=== PATIENT | female | born 1945 | race Caucasian/White ===

== ENCOUNTER 2016-08-22 05:41 | Observation (INO) | payer MEDICARE, OTHER ==
[~2016-08-22] VITALS: Ht 157.5 cm; Wt 61.5 kg
[~2016-08-22 05:41] MED LIST: DETR4CAP PO; GABA600T PO; HYDR-3583 PO; LORA1TAB12 PO; MELO7.5T4 PO; METO100T PO; SIMV10TA PO; TRAZ150T75 PO; TRIA37.5 PO
[2016-08-22] MEDS ORDERED: SODIUM CHLORID 0.9% 500 ML IV SCH (06:15)
[2016-08-22] MEDS ORDERED: ceFAZolin 2 GM PREMIX 50 ML IV SCH (06:15)
[2016-08-22] MEDS ORDERED: METOPROLOL TARTRATE 25 MG TAB PO PRN (06:15)
[2016-08-22] MEDS ORDERED: INSULIN HUMAN REGULAR 1,000 UNITS/10 ML VIAL SQ PRN (06:15)
[2016-08-22] MEDS ORDERED: VANCOMYCIN 1000 MG/NS 250 ML (for <70 kg) IV SCH ×2 (06:15)
[2016-08-22] MEDS ORDERED: CHLORHEXIDINE GLUCONATE 4% SOLN 120 ML BTL TOP SCH (06:15)
[2016-08-22] MEDS: LACTATED RINGER'S 1000 ML IV SCH ×2 (06:15→21:58)
[2016-08-22] MEDS ORDERED: AMLO5TAB2 PO (06:25)
[2016-08-22] MEDS ORDERED: STOO100C (06:25)
[2016-08-22] MEDS ORDERED: PERC5TAB12 PO (06:25)
[2016-08-22 06:27] VITALS: BP 161/80; PULSE 104; RESP 18; TEMP 99.3; O2SAT 97
[2016-08-22] MEDS ORDERED: GENTAMICIN SULFATE 80 MG/2 ML VIAL ONE (07:00)
[2016-08-22] MEDS ORDERED: MIDAZOLAM HCL 2 MG/2 ML VIAL ONE (07:09)
[2016-08-22] MEDS ORDERED: FAMOTIDINE 20 MG/2 ML VIAL ONE (07:09)
[2016-08-22] MEDS ORDERED: DEXAMETHASONE SOD PHOS 4 MG/ML VIAL ONE (07:09)
[2016-08-22 07:43] LABS: AUTOMATED NEUTROPHIL # 7.5 TH/MM3 (1.8-7.7); BASOPHIL # 0.1 TH/MM3 (0-0.2); BASOPHIL % 0.6 % (0.0-2.0); EOSINOPHIL # 0.3 TH/MM3 (0-0.4); EOSINOPHIL % 2.5 % (0.0-4.0); HEMATOCRIT 31.1 % (35.0-46.0); HEMO FLAGS DIFF FINAL; LYMPH % 13.9 % (9.0-44.0); LYMPHOCYTE # 1.4 TH/MM3 (1.0-4.8); MEAN CELL VOLUME 81.9 FL (80.0-100.0); MEAN CORPUSCULAR HEMOGLOBIN 27.9 PG (27.0-34.0); MONO % 9.8 % (0.0-8.0); NEUT % 73.2 % (16.0-70.0); PLATELET COUNT 183 TH/MM3 (150-450); RED CELL DISTRIBUTION WIDTH 13.2 % (11.6-17.2); WHITE BLOOD COUNT 10.2 TH/MM3 (4.0-11.0)
[2016-08-22 08:04] LABS: ALKALINE PHOSPHATASE 71 U/L (45-117); ALT (GPT) 19 U/L (10-53); ANION GAP 8 MEQ/L (5-15); AST (GOT) 20 U/L (15-37); BICARBONATE 28.7 MEQ/L (21.0-32.0); CHLORIDE 101 MEQ/L (98-107); GLOMERULAR FILTRATION RATE 50 ML/MIN (>89); POTASSIUM 3.5 MEQ/L (3.5-5.1); SODIUM (NA) 138 MEQ/L (136-145); TOTAL BILIRUBIN ADULT 0.4 MG/DL (0.2-1.0)
[2016-08-22 08:05] LABS: BLOOD UREA NITROGEN 20 MG/DL (7-18)
[2016-08-22 08:25] LABS: APTT (PATIENT) 21.9 SEC (24.3-30.1)
[2016-08-22] MEDS ORDERED: PERC7.5T13 PO (09:06)
--- NOTE | 2016-08-22 09:10 | PD.OP ---
Operative Report Date of Surgery: Aug 22, 2016 Preoperative Diagnosis: Displaced right humeral shaft fracture Postoperative Diagnosis: Displaced right humeral shaft fracture, nondisplaced right humeral neck fracture Procedure: Open reduction internal fixation right humeral shaft fracture, open reduction internal fixation right humeral neck fracture Anesthesia: Gen. Surgeon: Dalton Tran Electronic Equipment Maint Tech(s): ANTONIA Hernandez PA-C The surgical procedure was assisted by my physician assistant golf course superintendent. My P.A. presence was necessary throughout this case for the manipulation and positioning of the surgical extremity. My P.A. was assisting me throughout the duration of this procedure. The skill set of a physician assistant golf course superintendent was medically necessary to complete this procedure. During the surgical case the surgical appliances salesperson was working at the back table and the physician assistant golf course superintendent was directly assisting me. Operation and Findings: Patient was seen and evaluated preoperatively. Patient was found to have a displaced humerus fracture. The risks and benefits of surgical and nonsurgical options were discussed in detail and informed consent was obtained for surgery. Patient was brought to the operating room and placed on or table. IV sedation and GETA were administered by anesthesiologist. Antibiotics were given prior to incision. Operative arm and shoulder were prepped with alcohol followed by Hibiclens and draped usual sterile fashion. Timeout procedure was performed. Procedure began with a 5 inch incision over the anterior arm. Cephalic vein was identified. A standard anterior approach was utilized. The fracture was now visualized. Soft tissue was retracted. Attention was now turned to reduction. Gentle traction was applied. The humeral shaft fracture was reduced. Fracture was manipulated to achieve excellent reduction. Multiplanar fluoroscopy confirmed well aligned humerus shaft fracture. At this point in additional humeral neck fracture was identified under fluoroscopy. The incision was extended proximally. Proximally a deltopectoral incision was used and distally the brachialis was split. Multiple K wires were used to hold provisional fixation. A 2.7 cortical lag screw was used to compress the humeral shaft fracture. A long Synthes proximal humerus plate was selected to span both fractures. Plate was provisionally held in place K wires. 3.5 cortical screws were used to compress plate to bone. Fluoroscopy confirmed appropriate plate placement and fracture reduction. Multiple locking screws were now placed in the humeral head. Screws were predrilled and premeasured for appropriate length. Care was taken not to penetrate the articular surface. Additional screws were placed in the humeral shaft. Final fluoroscopy revealed well aligned fracture with well-placed hardware. Wound was thoroughly irrigated. Fascia was closed with #1 Vicryl, subcutaneous tissues closed with 3 -0 Vicryl, and skin was closed with pat. Sterile dressings were applied. Patient was placed into a sling. Patient was awakened and transferred to recovery in stable condition. Needle and sponge counts were correct. Dalton Tran MD Aug 22, 2016 09:09
[2016-08-22] MEDS ORDERED: ACETAMINOPHEN/HYDROcodone 325 MG/10 MG TAB PO PRN (09:15)
[2016-08-22] MEDS ORDERED: diphenhydrAMINE HCL 25 MG CAP PO PRN (09:15)
[2016-08-22] MEDS ORDERED: SODIUM CHLORIDE 0.9% FLUSH 5 ML FLUSH IVF PRN (09:15)
[2016-08-22] MEDS ORDERED: MORPHINE SULFATE 4 MG/ML INJ IV PUSH PRN (09:15)
[2016-08-22] MEDS ORDERED: ONDANSETRON HCL 4 MG/2 ML VIAL IVP PRN (09:15)
[2016-08-22] MEDS ORDERED: DO NOT ADM ANY ANTICOAGULANT DRUGS XX PRN (09:33)
[2016-08-22] MEDS ORDERED: MORPHINE SULFATE 4 MG/ML INJ ONE (09:37)
[2016-08-22] MEDS ORDERED: fentaNYL CITRATE 250 MCG/5 ML AMP ONE (09:37)
[2016-08-22] MEDS ORDERED: PROPOFOL 200 MG/20 ML AMP IV ONE (09:47)
[2016-08-22] MEDS ORDERED: ePHEDrine/NS 25 MG/5 ML SYR IV ONE (09:48)
[2016-08-22] MEDS ORDERED: NEOSTIGMINE 3 MG/3 ML SYR IV ONE (09:48)
[2016-08-22] MEDS ORDERED: ONDANSETRON HCL 4 MG/2 ML VIAL IV PUSH ONE (09:48)
[2016-08-22] MEDS ORDERED: LACTATED RINGER'S 1000 ML INJ 1,000 ML IV ONE (09:49)
--- NOTE | 2016-08-22 10:50 | PD.ORT.PN ---
Subjective Subjective Remarks Postoperative day 0 status post ORIF right proximal humerus and right humerus shaft fractures Objective Vitals Vital Signs Date Time Temp Pulse Resp B/P Pulse Ox O2 Delivery O2 Flow Rate FiO2 08/22/16 10:30 83 20 133/72 98 Nasal Cannula 2 08/22/16 10:15 83 20 143/68 98 Nasal Cannula 2 08/22/16 10:00 85 20 148/80 94 Room Air 08/22/16 09:45 88 20 158/79 98 Room Air 08/22/16 09:33 99.0 99 20 157/77 92 Nasal Cannula 2 08/22/16 06:27 99.3 104 18 161/80 97 I/O 08/21/16 08/21/16 08/21/16 08/22/16 08/22/16 08/22/16 07:00 15:00 23:00 07:00 15:00 23:00 Intake Total 1625 ml Output Total 75 ml Balance 1550 ml Intake IV Total 125 ml Other 1500 ml Output Estimated Blood Loss 75 ml Result Diagram: 08/22/16 0716 08/22/16 0801 Other Results Laboratory Tests Test 08/22/16 08:01 Prothrombin Time 11.0 SEC (9.8-11.6) Prothromb Time International 1.0 RATIO Ratio Objective Remarks Clean dry dressings in place. Neurovascularly intact right hand. Assessment & Plan Assessment and Plan Nonweightbearing right arm OT for pendulum exercises Sling and swath Plan on discharge home Thursday Dalton Cain MD Aug 22, 2016 10:50
--- NOTE | 2016-08-22 11:11 | HHI.FF ---
Face to Face Verification Diagnosis: (1) Fracture of humeral shaft, right, closed Occupational Therapy Right UE Weight Bearing: Non WB Right UE Range of Motion: Pendular Nursing Dressing Changes: Bassem wrap, 4x4s, Xeroform, Coverderm/Primapore Additional Instructions Every other day dressing changes I have seen patient Anastasiia Spangler on 08/22/16. My clinical findings support the need for the requested home health care services because: Limited ability to care for self I certify that my clinical findings support that this patient is homebound because: Unsteady gait/balance GUEVARA BENSON PA-C Aug 22, 2016 11:11
[2016-08-22] MEDS ORDERED: ERGO1CAP30 PO (11:21)
[2016-08-22 11:30] VITALS: BP 157/72; PULSE 94; RESP 18; TEMP 96.9; O2SAT 95
[2016-08-22] MEDS: CALCIUM/VITAMIN D 250 MG/125 U TAB PO SCH ×2 (12:46→16:52)
--- NOTE | 2016-08-22 13:08 | RADRPT ---
EXAM DATE/TIME: 08/22/2016 08:44 [facility] COMPARISON: No previous studies available for comparison. INDICATIONS : ORIF right humerus. MEDICAL HISTORY : None. SURGICAL HISTORY : None. ENCOUNTER: Initial ACUITY: 1 day PAIN SCORE: Non-responsive. LOCATION: Right humerus. FINDINGS: Multiple cone down views of the humerus were obtained intraoperatively using a matrix camera and demo nstrate that the patient is status post open ridgid internal fixation with screw-plate fixation devic e along the humerus. The fracture fragments are in anatomic alignment. CONCLUSION: That is post open ridgid internal fixation. Remigio Hernandez MD on August 22, 2016 at 13:06 Board Certified Radiologist. This report was verified electronically.
[2016-08-22 16:00] VITALS: BP 143/75; PULSE 87; RESP 19; TEMP 97.2; O2SAT 95
[2016-08-22] MEDS: ceFAZolin 2 GM PREMIX 50 ML IV SCH ×2 (16:52→23:12)
[2016-08-22 19:04] VITALS: O2SAT 95
[2016-08-22] MEDS: DOCUSATE SODIUM 50 MG/SENNA 8.6 MG TAB PO SCH (19:36)
[2016-08-22] MEDS: oxyCODONE/ACETAMINOPHEN 7.5 MG/325 MG TAB PO PRN (19:36)
[2016-08-22] MEDS: SODIUM CHLORIDE 0.9% FLUSH 5 ML FLUSH IVF SCH (19:37)
[2016-08-22 20:10] VITALS: BP 142/67; PULSE 90; RESP 16; TEMP 96.5; O2SAT 96
[2016-08-22] MEDS ORDERED: GABAPENTIN 300 MG CAP PO SCH (21:00)
[2016-08-22] MEDS ORDERED: traZODone HCL 50 MG TAB PO SCH (21:00)
[2016-08-22] MEDS ORDERED: PRAVASTATIN SOD 20 MG TAB PO SCH (21:00)
[2016-08-22] MEDS ORDERED: MAGNESIUM HYDROXIDE SUSP 30 ML CUP PO PRN (23:30)
[2016-08-23] VITALS: BP 140/65; PULSE 90; RESP 16; TEMP 97.7; O2SAT 96
[2016-08-23] MEDS: oxyCODONE/ACETAMINOPHEN 7.5 MG/325 MG TAB PO PRN ×2 (03:29→08:05)
[2016-08-23 04:00] VITALS: BP 161/67; PULSE 87; RESP 16; TEMP 98.6; O2SAT 94
[2016-08-23 08:00] VITALS: BP 120/61; PULSE 87; RESP 18; TEMP 97.6; O2SAT 95
[2016-08-23] MEDS: CALCIUM/VITAMIN D 250 MG/125 U TAB PO SCH (08:04)
[2016-08-23] MEDS: ceFAZolin 2 GM PREMIX 50 ML IV SCH (08:04)
[2016-08-23] MEDS: SODIUM CHLORIDE 0.9% FLUSH 5 ML FLUSH IVF SCH (08:04)
[2016-08-23] MEDS: DOCUSATE SODIUM 50 MG/SENNA 8.6 MG TAB PO SCH (08:05)
--- NOTE | 2016-08-23 08:25 | PD.ORT.PN ---
Subjective Post Op Day #: 1 Subjective Remarks pain well controlled Objective Vitals Vital Signs Date Time Temp Pulse Resp B/P Pulse Ox O2 Delivery O2 Flow Rate FiO2 08/23/16 04:00 98.6 87 16 161/67 94 08/23/16 00:00 97.7 90 16 140/65 96 08/22/16 20:10 96.5 90 16 142/67 96 08/22/16 19:04 95 21 08/22/16 16:00 97.2 87 19 143/75 95 08/22/16 11:30 96.9 94 18 157/72 95 08/22/16 10:48 99.0 83 20 133/72 98 Nasal Cannula 2 08/22/16 10:30 83 20 133/72 98 Nasal Cannula 2 08/22/16 10:15 83 20 143/68 98 Nasal Cannula 2 08/22/16 10:00 85 20 148/80 94 Room Air 08/22/16 09:45 88 20 158/79 98 Room Air 08/22/16 09:33 99.0 99 20 157/77 92 Nasal Cannula 2 I/O 08/22/16 08/22/16 08/22/16 08/23/16 08/23/16 08/23/16 07:00 15:00 23:00 07:00 15:00 23:00 Intake Total 1915 ml 480 ml 360 ml Output Total 75 ml Balance 1840 ml 480 ml 360 ml Intake Oral 240 ml 480 ml 360 ml IV Total 125 ml TPN/PPN 50 ml Other 1500 ml Output Estimated Blood Loss 75 ml # Voids 4 2 2 Result Diagram: 08/22/16 0716 08/22/16 0801 Objective Remarks Clean dry dressings in place. Neurovascularly intact right hand. Assessment & Plan Ortho Post Op Day #: 1 Problem List: Assessment and Plan Nonweightbearing right arm OT for pendulum exercises Sling and swath Plan on discharge home Thursday - cleared for d/c Ramírez Calderon Aug 23, 2016 08:25
[2016-08-23] MEDS ORDERED: METOPROLOL TARTRATE 100 MG TAB PO SCH (09:00)
[2016-08-23] MEDS ORDERED: TRIAMTERENE/HCTZ 37.5 MG/25 MG TAB PO SCH (09:00)
[2016-08-23] MEDS ORDERED: TOLTERODINE TARTRATE 4 MG CAP LA PO SCH (09:00)
[2016-08-23] MEDS ORDERED: amLODIPine BESYLATE 5 MG TAB PO SCH (09:00)
== END 2016-08-23 12:50 | disposition home health service (06) ==
LOC: HSDC 05:41 → HSDI 09:02 → N06B 11:01 → N06A 18:49
PROVIDERS: ADMIT Orthopaedic Surgery Orthopaedic Trauma; ATTEND Orthopaedic Surgery Orthopaedic Trauma
DX: S42.391A Other fracture of shaft of right humerus, initial encounter for closed fracture (principal); S42.214A Unspecified nondisplaced fracture of surgical neck of right humerus, initial encounter for closed fracture; I10 Essential (primary) hypertension
CPT/HCPCS: 01630; 23615; 24515; 73060; 76000; 80053; 85025; 85610; 85730; C1713; G0378; J0690; J1100; J1580; J2250; J2270; J2405; J2710; J3010; J7120

== ENCOUNTER 2016-09-06 12:17 | Emergency (ER) | payer MEDICARE, OTHER ==
[~2016-09-06] VITALS: Ht 160 cm; Wt 65.0 kg
[~2016-09-06 12:17] MED LIST changes: +AMLO5TAB2 PO; +ERGO1CAP30 PO; -HYDR-3583 PO; -LORA1TAB12 PO; -MELO7.5T4 PO; +PERC5TAB12 PO; +PERC7.5T13 PO; +STOO100C
[2016-09-06 12:21] VITALS: BP 126/60; PULSE 103; RESP 15; TEMP 98.4; O2SAT 98
--- NOTE | 2016-09-06 13:58 | RADRPT ---
EXAM DATE/TIME: 09/06/2016 13:27 [facility] COMPARISON: HUMERUS RIGHT (MIN 2VWS), August 22, 2016, 8:44. INDICATIONS : Right arm pain after fall. MEDICAL HISTORY : None. SURGICAL HISTORY : ORIF right humerus. ENCOUNTER: Initial ACUITY: 1 day PAIN SCORE: 5/10 LOCATION: Right arm. FINDINGS: 3 views of the right humerus demonstrate lateral humeral sideplate extending from the proximal head t o the distal metaphysis. There are multiple interlocking screws. Overlying skin pat are present. No soft tissue abnormality or concerning finding is identified. CONCLUSION: No acute finding is identified. Humeral sideplate is present following ORIF. Erick Hope MD on September 06, 2016 at 13:56 Board Certified Radiologist. This report was verified electronically.
--- NOTE | 2016-09-06 14:00 | RADRPT ---
EXAM DATE/TIME: 09/06/2016 13:32 [facility] COMPARISON: No previous studies available for comparison. INDICATIONS : Right hand pain after fall. MEDICAL HISTORY : None. SURGICAL HISTORY : None. ENCOUNTER: Initial ACUITY: 1 day PAIN SCORE: 10/10 LOCATION: Right wrist. FINDINGS: 3 views of the right hand demonstrate no fracture or dislocation. The bones are undermineralized. The re is osteoarthritis at the fourth and fifth distal interphalangeal joint. There may be a cystic area in the lateral aspect of the lunate. No soft tissue abnormality or radiopaque foreign body is identi fied. CONCLUSION: No acute right hand abnormality is identified. The bones are undermineralized and there is osteoarthr itis at the fourth and fifth digit DIP joint. Erick Hope MD on September 06, 2016 at 13:57 Board Certified Radiologist. This report was verified electronically.
--- NOTE | 2016-09-06 14:01 | RADRPT ---
EXAM DATE/TIME: 09/06/2016 13:33 [facility] COMPARISON: No previous studies available for comparison. INDICATIONS : Right wrist pain after fall. MEDICAL HISTORY : None. SURGICAL HISTORY : None. ENCOUNTER: Initial ACUITY: 1 day PAIN SCORE: 10/10 LOCATION: Right wrist. FINDINGS: 3 views of the right wrist demonstrate no fracture or dislocation. The bones are undermineralized. Th ere is rami osteoarthritis at the first carpometacarpal joint. No soft tissue abnormality or radiopaq ue foreign body is identified. Questionable lucency is present in the lateral aspect of the lunate. CONCLUSION: The bones are undermineralized. No acute finding is identified. Erick Hope MD on September 06, 2016 at 13:59 Board Certified Radiologist. This report was verified electronically.
[2016-09-06] MEDS ORDERED: SODIUM CHLORIDE 0.9% FLUSH 5 ML FLUSH IVF PRN (14:15)
--- NOTE | 2016-09-06 14:19 | PD ---
HPI Chief Complaint: Fall Time Seen by Provider: 14:03 Travel History International Travel<30 days: No Contact w/Intl Traveler<30days: No Traveled to known affect area: No History of Present Illness HPI 70-year-old female who is status post ORIF of the right humerus and 08/22/[address] Tran, brought in by her daughter for evaluation of falls and right wrist pain. Patient has had 2 falls in the last 2 days, last fall was yesterday evening. According to the daughter the patient slid off of her bed. She also fell on the restroom and struck her head against the toilet. There was no LOC. She is not complaining of right wrist pain and right arm pain. The daughter also reports that the patient has not been acting like herself lately and is more confused than usual. She reports that the patient had a fever 100.9F earlier this morning. Aside from pain in the right arm and wrist, the patient has no other physical complaints. No head neck or back pain. No pain in any other joint or extremity. No chest pain or dyspnea. No cough or upper respiratory symptoms. No abdominal pain. PFSH Past Medical History Hx Anticoagulant Therapy: Yes Arthritis: Yes (RA ) Asthma: No Autoimmune Disease: Yes (RA) Anxiety: No Depression: No Heart Rhythm Problems: No Cancer: No Cardiovascular Problems: Yes (HTN) High Cholesterol: Yes Chemotherapy: No Chest Pain: No Congestive Heart Failure: Yes COPD: No Cerebrovascular Accident: No Diabetes: No Endocrine: No Genitourinary: Yes (weak bladder) Hepatitis: No Hiatal Hernia: No Immune Disorder: No Kidney Stones: No Musculoskeletal: Yes (back pain, arthritis) Neurologic: No Psychiatric: No Reproductive: No Respiratory: No Radiation Therapy: No Renal Failure: No Sickle Cell Disease: No Sleep Apnea: No Thyroid Disease: No Ulcer: No ?: Not Past Surgical History Abdominal Surgery: Yes (hernia) AICD: No Arteriovenous Shunt: No Body Medical Devices: PLATE , SCREWS LOWER BACK Cardiac Surgery: No Ear Surgery: No Endocrine Surgery: No Eye Surgery: No Genitourinary Surgery: No Gynecologic Surgery: Yes (hysterectomy) Insulin Pump: No Joint Replacement: No Oral Surgery: No Pacemaker: No Social History Alcohol Use: No Tobacco Use: No Substance Use: No Allergies-Medications (Allergen,Severity, Reaction): Coded Allergies: Oxycontin (Verified Allergy, Severe, spaced out/does not know who she is, 08/22/16) Vancomycin (Verified Allergy, Severe, 08/22/16) does not wake up Reported Meds & Prescriptions Reported Meds & Active Scripts Active Ergocalciferol 50,000 Unit Cap 50,000 Units PO Q7D Percocet (Oxycodone-Acetaminophen) 7.5-325 mg Tab 1 Tab PO Q4H PRN Reported Stool Softener (Docusate Sodium) 100 Mg Cap Percocet (Oxycodone-Acetaminophen) 5-325 mg Tab 1 Tab PO Q4H PRN Amlodipine (Amlodipine Besylate) 5 Mg Tab 5 Mg PO DAILY Triamterene-Hydrochlorothiazide 37.5-25 Mg Tab 1 Tab PO DAILY Trazodone (Trazodone HCl) 150 Mg Tab 150 Mg PO HS Detrol LA (Tolterodine Tartrate) 4 Mg Cap 4 Mg PO DAILY Simvastatin 10 Mg Tab 10 Mg PO HS Metoprolol Tartrate 100 Mg Tab 100 Mg PO DAILY Gabapentin 600 Mg Tab 600 Mg PO HS Review of Systems Except as stated in HPI: all other systems reviewed are Neg Physical Exam Narrative GENERAL: Well-developed, well-nourished, awake, alert, no acute distress. SKIN: Warm and dry. Right anterior arm with large vertical surgical incision with several pat in place with surrounding warmth, mild erythema, no induration, no purulent drainage. HEAD: Atraumatic. Normocephalic. EYES: Pupils equal and round. No scleral icterus. No injection or drainage. ENT: Mucous membranes pink and moist. NECK: Trachea midline. No JVD. No midline cervical spine step-off or tenderness. CARDIOVASCULAR: Regular rate and rhythm. Bilateral distal radial pulses are brisk and equal. RESPIRATORY: No accessory muscle use. Clear to auscultation. Breath sounds equal bilaterally. GASTROINTESTINAL: Abdomen soft, non-tender, nondistended. MUSCULOSKELETAL: Skin exam as above. Moderate edema to right arm. Moderate diffuse tenderness to right upper extremity without obvious deformity. NEUROLOGICAL: Awake and alert. No obvious cranial nerve deficits. Motor grossly within normal limits. Normal speech. PSYCHIATRIC: Appropriate mood and affect; insight and judgment normal. Data Data Last Documented VS Vital Signs Date Time Temp Pulse Resp B/P Pulse Ox O2 Delivery O2 Flow Rate FiO2 09/06/16 16:21 89 18 119/63 96 Room Air 09/06/16 12:21 98.4 Orders Wrist, Complete ([id number]) (09/06/16 ) Hand, Complete (Tbs0lop) (09/06/16 ) Humerus (Min 2vws) (09/06/16 ) Complete Blood Count With Diff (09/06/16 14:12) Comprehensive Metabolic Panel (09/06/16 14:12) Prothrombin Time / Inr (Pt) (09/06/16 14:12) Act Partial Throm Time (Ptt) (09/06/16 14:12) Urinalysis - C+S If Indicated (09/06/16 14:12) Iv Access Insert/Monitor (09/06/16 14:12) Ecg Monitoring (09/06/16 14:12) Oximetry (09/06/16 14:12) Sodium Chloride 0.9% Flush (Ns Flush) (09/06/16 14:15) Blood Culture (09/06/16 14:12) Lactic Acid (09/06/16 14:12) Ct Brain W/O Iv Contrast(Rout) (09/06/16 ) Cath For Specimen (09/06/16 14:12) Forearm (2vws) (09/06/16 ) Morphine Inj (Morphine Inj) (09/06/16 15:00) Ondansetron Inj (Zofran Inj) (09/06/16 15:00) Creatine Kinase (Cpk) (09/06/16 14:55) Potassium Cl 40 Meq/30 Ml Liq (Kcl 40 Me (09/06/16 16:30) Labs Laboratory Tests Test 09/06/16 09/06/16 14:55 15:05 White Blood Count 11.9 TH/MM3 Red Blood Count 4.02 MIL/MM3 Hemoglobin 11.4 GM/DL Hematocrit 32.7 % Mean Corpuscular Volume 81.3 FL Mean Corpuscular Hemoglobin 28.3 PG Mean Corpuscular Hemoglobin 34.8 % Concent Red Cell Distribution Width 13.3 % Platelet Count 248 TH/MM3 Mean Platelet Volume 7.9 FL Neutrophils (%) (Auto) 79.2 % Lymphocytes (%) (Auto) 10.4 % Monocytes (%) (Auto) 9.9 % Eosinophils (%) (Auto) 0.2 % Basophils (%) (Auto) 0.3 % Neutrophils # (Auto) 9.4 TH/MM3 Lymphocytes # (Auto) 1.2 TH/MM3 Monocytes # (Auto) 1.2 TH/MM3 Eosinophils # (Auto) 0.0 TH/MM3 Basophils # (Auto) 0.0 TH/MM3 CBC Comment DIFF FINAL Differential Comment Prothrombin Time 11.4 SEC Prothromb Time International 1.0 RATIO Ratio Activated Partial 24.0 SEC Thromboplast Time Sodium Level 139 MEQ/L Potassium Level 3.1 MEQ/L Chloride Level 97 MEQ/L Carbon Dioxide Level 30.9 MEQ/L Anion Gap 11 MEQ/L Blood Urea Nitrogen 21 MG/DL Creatinine 0.96 MG/DL Estimat Glomerular Filtration 57 ML/MIN Rate Random Glucose 122 MG/DL Lactic Acid Level 0.8 mmol/L Calcium Level 9.3 MG/DL Total Bilirubin 0.5 MG/DL Aspartate Amino Transf 12 U/L (AST/SGOT) Alanine Aminotransferase 13 U/L (ALT/SGPT) Alkaline Phosphatase 80 U/L Total Creatine Kinase 47 U/L Total Protein 7.7 GM/DL Albumin 3.2 GM/DL Urine Color YELLOW Urine Turbidity CLEAR Urine pH 6.5 Urine Specific [place] 1.020 Urine Protein 30 mg/dL Urine Glucose (UA) NEG mg/dL Urine Ketones NEG mg/dL Urine Occult Blood SMALL Urine Nitrite NEG Urine Bilirubin NEG Urine Urobilinogen LESS THAN 2.0 MG/DL Urine Leukocyte Esterase NEG Urine RBC 24 /hpf Urine WBC 2 /hpf Urine Mucus FEW /lpf Microscopic Urinalysis Comment CULT NOT INDICATED MDM Medical Decision Making Medical Screen Exam Complete: Yes Emergency Medical Condition: Yes Medical Record Reviewed: Yes Differential Diagnosis Cellulitis, infected hardware, UTI, metabolic abnormality, intracranial trauma Narrative Course Initial vital signs show heart rate of 103 which improved to 89 without any intervention, blood pressure 126/60, pulse ox 98% on room air, oral temp of 98.4 F. CBC shows to be BC 11.9, hemoglobin 11.4, hematocrit 32.7, platelets 248, neutrophils 79%. CMP is remarkable for potassium 3.1, otherwise essentially unremarkable. Lactic acid is 0.8. UA shows small occult blood, 24 RBCs. Not suggestive of UTI. This was a catheterized specimen, likely contributing to be mature area. Right humerus x-ray: No acute findings identified. Humeral side plate is present following ORIF. Right wrist x-ray: The bones are and her mineral eyes. No acute finding. Right hand x-ray: No acute right hand abnormality is identified. The bones are unremarkable and her eyes and there is osteoarthritis of the fourth and fifth digit DIP joint. Right forearm x-ray: No acute forearm abnormality is visualized. CT head: Mild atrophy and minimal white matter disease. Patient was given oral potassium. She was made aware of all findings. She is afebrile here. Her right arm surgical incision is clean, dry, intact, mild surrounding warmth, no erythema, no purulent drainage, healing well. This does not appear to be infected. Case discussed with orthopedic surgeon Dr. Farah who is covering for Dr. Tran this states that the patient can follow-up in Dr. Tran's office as scheduled in 2 days for staple removal. The patient and the patient's daughter were made aware of all findings. Patient is likely having bouts of confusion secondary to the pain medication that she is on at home. She is very lucid here in the emergency department. She is stable for discharge home. They were informed on when to return to the emergency department. They verbalized understanding and agreement with plan. Diagnosis Primary Impression: Fall Qualified Code: W19.XXXA - Fall, initial encounter Additional Impressions: Contusion of right wrist Qualified Code: S60.211A - Contusion of right wrist, initial encounter Hypokalemia Referrals: Dalton Tran MD 2 days Additional Instructions: Follow-up with orthopedic surgeon Dr. Tran in 2 days as scheduled for staple removal. Return to the emergency department for worsening symptoms or any other concerns. Disposition: 01 DISCHARGE HOME Condition: Stable Baron Kapadia MD Sep 06, 2016 14:19
[2016-09-06 14:20] VITALS: RESP 18; O2SAT 98
--- NOTE | 2016-09-06 14:53 | RADRPT ---
EXAM DATE/TIME: 09/06/2016 14:24 [facility] COMPARISON: No previous studies available for comparison. INDICATIONS : Right Forearm pain after fall. MEDICAL HISTORY : None. SURGICAL HISTORY : ORIF right humerus. ENCOUNTER: Initial ACUITY: 1 day PAIN SCORE: 10/10 LOCATION: Right Forearm. FINDINGS: 3 views of the right forearm demonstrate no fracture or dislocation. The bones appear under mineraliz ed. Partially visualized distal humerus hardware is seen and there are skin pat along the anterio r distal arm. No definite soft tissue abnormality is identified. CONCLUSION: No acute forearm abnormality is visualized. Erick Hope MD on September 06, 2016 at 14:50 Board Certified Radiologist. This report was verified electronically.
[2016-09-06] MEDS ORDERED: MORPHINE SULFATE 4 MG/ML INJ IV PUSH ONE (15:00)
[2016-09-06] MEDS ORDERED: ONDANSETRON HCL 4 MG/2 ML VIAL IV PUSH ONE (15:00)
[2016-09-06 15:33] LABS: AUTOMATED NEUTROPHIL # 9.4 TH/MM3 (1.8-7.7); BASOPHIL % 0.3 % (0.0-2.0); EOSINOPHIL % 0.2 % (0.0-4.0); HEMATOCRIT 32.7 % (35.0-46.0); HEMO FLAGS DIFF FINAL; LYMPH % 10.4 % (9.0-44.0); LYMPHOCYTE # 1.2 TH/MM3 (1.0-4.8); MEAN CELL VOLUME 81.3 FL (80.0-100.0); MEAN CORPUSCULAR HEMOGLOBIN 28.3 PG (27.0-34.0); MEAN CORPUSCULAR HGB CONC 34.8 % (32.0-36.0); MONO % 9.9 % (0.0-8.0); NEUT % 79.2 % (16.0-70.0); PLATELET COUNT 248 TH/MM3 (150-450); RED BLOOD COUNT 4.02 MIL/MM3 (4.00-5.30); RED CELL DISTRIBUTION WIDTH 13.3 % (11.6-17.2); WHITE BLOOD COUNT 11.9 TH/MM3 (4.0-11.0)
[2016-09-06 15:46] LABS: PROTHROMBIN TIME - PATIENT 11.4 SEC (9.8-11.6)
--- NOTE | 2016-09-06 15:51 | RADRPT ---
EXAM DATE/TIME: 09/06/2016 15:38 [facility] COMPARISON: No previous studies available for comparison. INDICATIONS : Trauma; fall. RADIATION DOSE: 56.38 CTDIvol (mGy) MEDICAL HISTORY : Hypertension. SURGICAL HISTORY : None. ENCOUNTER: Initial ACUITY: 1 day PAIN SCALE: 6/10 LOCATION: cranial TECHNIQUE: Multiple contiguous axial images were obtained of the head. Using automated exposure control and adj ustment of the mA and/or kV according to patient size, radiation dose was kept as low as reasonably a chievable to obtain optimal diagnostic quality images. FINDINGS: There is mild atrophy and periventricular white matter disease. Small air-fluid levels in the maxilla ry sinuses are identified. There are no fractures. No hemorrhage, infarct, or mass. CONCLUSION: 1. Mild atrophy and minimal white matter disease. Keshav Ramos MD on September 06, 2016 at 15:49 Board Certified Radiologist. This report was verified electronically.
[2016-09-06 15:53] LABS: BLOOD, URINE SMALL (NEG); COMMENT (UR) CULT NOT INDICATED; CULTURE IF INDICATED CULT NOT INDICATED; GLUCOSE,URINE NEG (NEG); KETONE, URINE NEG (NEG); MUCUS URINE FEW /lpf (OCC); NITRITE,URINE NEG (NEG); PH, URINE 6.5 (5.0-8.5); URINE COLOR YELLOW (YELLW/STRAW)
[2016-09-06 16:21] VITALS: BP 119/63; PULSE 89; RESP 18; O2SAT 96
[2016-09-06 16:23] LABS: ALT (GPT) 13 U/L (10-53); ANION GAP 11 MEQ/L (5-15); AST (GOT) 12 U/L (15-37); BICARBONATE 30.9 MEQ/L (21.0-32.0); BLOOD UREA NITROGEN 21 MG/DL (7-18); CHLORIDE 97 MEQ/L (98-107); GLOMERULAR FILTRATION RATE 57 ML/MIN (>89); POTASSIUM 3.1 MEQ/L (3.5-5.1); SODIUM (NA) 139 MEQ/L (136-145)
[2016-09-06 16:26] LABS: ALKALINE PHOSPHATASE 80 U/L (45-117); TOTAL BILIRUBIN ADULT 0.5 MG/DL (0.2-1.0)
[2016-09-06 16:29] LABS: CREATINE KINASE 47 U/L (26-192)
[2016-09-06] MEDS ORDERED: POTASSIUM CL 40 MEQ/30 ML LIQ UDC PO ONE (16:30)
== END 2016-09-06 17:39 | disposition home or self-care (01) ==
LOC: NEPC 12:17
DX: S60.211A Contusion of right wrist, initial encounter (principal); E87.6 Hypokalemia; W06.XXXA Fall from bed, initial encounter; Y92.003 Bedroom of unspecified non-institutional (private) residence as the place of occurrence of the external cause; W18.00XA Striking against unspecified object with subsequent fall, initial encounter; Y92.002 Bathroom of unspecified non-institutional (private) residence as the place of occurrence of the external cause
CPT/HCPCS: 70450; 73060; 73090; 73110; 73130; 80053; 81001; 82550; 83605; 85025; 85610; 85730; 87040; 96374; 96375; 99284; J2270; J2405; P9612